=== PATIENT | female | born 1965 | race Caucasian/White ===

== ENCOUNTER 2017-08-13 18:40 | Emergency (ER) | payer BC, MEDICAID ==
[~2017-08-13] VITALS: Ht 170.2 cm; Wt 104.5 kg
[~2017-08-13 18:40] MED LIST: ASPI-664 PO; METO-429 PO; OLME1TAB25 PO
[2017-08-13 19:06] VITALS: Ht 170.2 cm; Wt 104.5 kg
[2017-08-14] MEDS ORDERED: ACETAMINOPHEN 325 MG TAB PO STA (01:53)
--- NOTE | 2017-08-14 02:36 | RADRPT ---
PROCEDURE: XR Chest. CLINICAL INDICATION: Shortness of breath. TECHNIQUE: AP Portable chest. COMPARISON: 03/14/2015 FINDINGS: The cardiomediastinal silhouette is normal. The lungs are clear. The osseous structures are unrema rkable. IMPRESSION: No acute findings. RPTAT: HIKT .Simon Franks MD, MD Date Time Electronically viewed and signed by .Simon Franks MD, on 08/14/2017 02:35 .T/
[2017-08-14 02:58] LABS: BASOPHIL # 0.1 10^3/ul (0.0-0.1); BASOPHILS % 0.3 % (0.0-2.0); HEMATOCRIT 44.8 % (37.0-47.0); HEMOGLOBIN 14.6 g/dl (12.0-16.0); LYMPHOCYTES # 1.5 10^3/ul (0.8-2.9); LYMPHOCYTES % 6.8 % (15.0-51.0); MEAN CORPUSCULAR HEMOGLOBIN 27.6 pg (29.0-33.0); MEAN CORPUSCULAR HGB CONC 32.6 g/dl (32.0-37.0); MEAN CORPUSCULAR VOLUME 84.7 fl (82.0-101.0); MEAN PLATELET VOLUME 10.5 fl (7.4-10.4); MONOCYTE # 0.9 10^3/ul (0.3-0.9); NEUTROPHIL # 19.8 10^3/ul (1.6-7.5); NEUTROPHILS % 88.4 % (39.0-77.0); PLATELET COUNT 328 10^3/UL (140-415); RED BLOOD COUNT 5.29 10^6/ul (4.20-5.40); RED CELL DISTRIBUTION WIDTH 13.5 % (11.5-14.5); WHITE BLOOD COUNT 22.4 10^3/ul (4.8-10.8)
[2017-08-14 03:02] LABS: ADD UMIC YES; UR ASCORBIC ACID NEGATIVE (NEGATIVE); UR BACTERIA FEW /HPF (NONE SEEN); UR BILIRUBIN (Dip) NEGATIVE (NEGATIVE); UR BLOOD (Dip) NEGATIVE (NEGATIVE); UR CLARITY SLIGHTLY CLOUDY (CLEAR); UR COLOR YELLOW (YELLOW); UR GLUCOSE (Dip) NEGATIVE (NEGATIVE); UR KETONES (Dip) TRACE mg/dL (NEGATIVE); UR LEUKOCYTE ESTERASE (Dip) NEGATIVE Leu/ul (NEGATIVE); UR NITRITE (Dip) NEGATIVE (NEGATIVE); UR RBC 1 /HPF (0-5); UR SPECIFIC GRAVITY (Dip) 1.015 (1.003-1.030); UR SQUAMOUS EPITHELIAL CELL FEW /HPF (FEW); UR TOTAL PROTEIN (Dip) 1+ mg/dl (NEGATIVE); UR UROBILINOGEN (Dip) NEGATIVE (NEGATIVE)
[2017-08-14 03:19] LABS: INR 1.25; PROTIME 15.8 Sec (12.2-14.2); PT RATIO 1.2
[2017-08-14 03:20] LABS: PARTIAL THROMBOPLASTIN TIME 30.3 Sec (25.0-35.0)
[2017-08-14 03:23] LABS: ALBUMIN 4.6 g/dl (3.3-4.9); ALBUMIN/GLOBULIN RATIO 1.24; BILIRUBIN,INDIRECT 0.3 mg/dl (0-1.1); BILIRUBIN,TOTAL 0.3 mg/dl (0.2-1.3); CALCIUM 9.6 mg/dl (8.4-10.2); CREATININE 2.65 mg/dl (0.44-1.00); POTASSIUM 3.1 mmol/L (3.5-5.1); TOTAL PROTEIN 8.3 g/dl (6.1-8.1)
[2017-08-14 03:34] LABS: TROPONIN-I 0.014 ng/ml (0.00-0.12)
[2017-08-14] MEDS ORDERED: AMLO-147 PO (03:43)
[2017-08-14] MEDS ORDERED: ATEN100T PO (03:43)
[2017-08-14] MEDS ORDERED: HYDR25TA6 PO (03:43)
[2017-08-14] MEDS ORDERED: KETOROLAC 15 MG INJ IV STA (05:28)
[2017-08-14] MEDS ORDERED: IBUP800T25 PO (05:29)
[2017-08-14] MEDS ORDERED: ACET325T33 PO (05:29)
[2017-08-14] MEDS ORDERED: PRED20TA PO (05:29)
[2017-08-14] MEDS ORDERED: ONDA4TAB14 PO (05:30)
--- NOTE | 2017-08-14 05:32 | ERD ---
ER Documentation Chief Complaint Date/Time DATE: 08/14/17 TIME: 05:30 Chief Complaint c/o weakness, dizziness, and nausea/vomiting since a.m. HPI This is a 51-year-old female comes in with fever cough runny nose weakness dizziness and nausea and vomiting since this morning. She denies any chills but has felt feverish. Vomiting is nonbilious and nonbloody. Patient was able to tolerate p.o. prior to arrival to the emergency department. Patient denies any focal neurological complaints. No sick contacts of the patient knows of. No other current issues. ROS All systems reviewed and are negative except as per history of present illness. Medications Home Meds Active Scripts Ondansetron (Ondansetron Odt) 4 Mg Tab.rapdis, 4 MG PO Q6H Y for NAUSEA AND/OR VOMITING, #10 TAB Prov:LUNA HERNANDEZ 08/14/17 Acetaminophen* (Tylenol*) 325 Mg Tablet, 2 TAB PO Q6 Y for PAIN AND OR ELEVATED TEMP, #20 TAB Prov:LUNA HERNANDEZ 08/14/17 Ibuprofen* (Motrin*) 800 Mg Tab, 800 MG PO Q6, #30 TAB Prov:LUNA HERNANDEZ 08/14/17 Prednisone* (Prednisone*) 20 Mg Tab, 40 MG PO DAILY for 4 Days, TAB Prov:LUNA HERNANDEZ 08/14/17 Olmesartan-Hydrochlorothiazide (Benicar HCT) 40-12.5 Mg Tablet, 1 TAB PO DAILY, #30 TAB 3 Refills Prov:BEKA LACKEY MD 03/15/15 Aspirin* (Aspirin* EC) 81 Mg Tabec, 81 MG PO DAILY, #30 TAB Prov:BEKA LACKEY MD 03/15/15 Reported Medications Amlodipine Besylate* (Amlodipine Besylate*) 10 Mg Tablet, 10 MG PO DAILY, #30 TAB 08/14/17 Hydrochlorothiazide* (Hydrochlorothiazide*) 25 Mg Tab, 25 MG PO QAM, #30 TAB 08/14/17 Atenolol* (Atenolol*) 100 Mg Tablet, 100 MG PO DAILY, #30 TAB 08/14/17 Discontinued Scripts Metoprolol Tartrate* (Lopressor*) 50 Mg Tab, 50 MG PO BID, #60 TAB Prov:BEKA LACKEY MD 03/15/15 Allergies Allergies: Coded Allergies: No Known Allergy (Unverified , 03/14/15) PMhx/Soc History of Surgery: Yes (HYSTERECTOMY ) Anesthesia Reaction: No Hx Neurological Disorder: No Hx Respiratory Disorders: No Hx Cardiac Disorders: Yes (HTN ) Hx Psychiatric Problems: No Hx Alcohol Use: Yes Hx Substance Use: No Hx Tobacco Use: No Smoking Status: Never smoker Physical Exam Vitals Vital Signs Date Time Temp Pulse Resp B/P Pulse Ox O2 Delivery O2 Flow Rate FiO2 08/14/17 02:43 101.8 83 18 105/60 100 Room Air 08/14/17 02:43 Nasal Cannula 08/13/17 19:06 101.8 72 18 98/57 98 Physical Exam Const: [] Head: Atraumatic Eyes: Normal Conjunctiva ENT: Normal External Ears, Nose and Mouth. Neck: Full range of motion..~ No meningismus. Resp: Clear to auscultation bilaterally Cardio: Regular rate and rhythm, no murmurs Abd: Soft, non tender, non distended. Normal bowel sounds Skin: No petechiae or rashes Back: No midline or flank tenderness Ext: No cyanosis, or edema Neur: Awake and alert Psych: Normal Mood and Affect Result Diagram: 08/14/1722808/14/17228 Results 24 hrs Laboratory Tests Test 08/14/17 02:29 08/14/17 02:34 08/14/17 04:01 White Blood Count 22.410^3/ul Red Blood Count 5.2910^6/ul Hemoglobin 14.6g/dl Hematocrit 44.8% Mean Corpuscular Volume 84.7fl Mean Corpuscular Hemoglobin 27.6pg Mean Corpuscular Hemoglobin Concent 32.6g/dl Red Cell Distribution Width 13.5% Platelet Count 35587^3/UL Mean Platelet Volume 10.5fl Neutrophils % 88.4% Lymphocytes % 6.8% Monocytes % 4.0% Eosinophils % 0.0% Basophils % 0.3% Nucleated Red Blood Cells % 0.0/100WBC Neutrophils # 19.810^3/ul Lymphocytes # 1.510^3/ul Monocytes # 0.910^3/ul Eosinophils # 0.010^3/ul Basophils # 0.110^3/ul Nucleated Red Blood Cells # 0.010^3/ul Prothrombin Time 15.8Sec Prothrombin Time Ratio 1.2 INR International Normalized Ratio 1.25 Activated Partial Thromboplast Time 30.3Sec Sodium Level 139mmol/L Potassium Level 3.1mmol/L Chloride Level 97mmol/L Carbon Dioxide Level 25mmol/L Anion Gap 20 Blood Urea Nitrogen 23mg/dl Creatinine 2.65mg/dl Glucose Level 114mg/dl Calcium Level 9.6mg/dl Total Bilirubin 0.3mg/dl Direct Bilirubin 0.00mg/dl Indirect Bilirubin 0.3mg/dl Aspartate Amino Transf (AST/SGOT) 31IU/L Alanine Aminotransferase (ALT/SGPT) 59IU/L Alkaline Phosphatase 90IU/L Troponin I 0.014ng/ml Total Protein 8.3g/dl Albumin 4.6g/dl Globulin 3.70g/dl Albumin/Globulin Ratio 1.24 Urine Color YELLOW Urine Clarity SLIGHTLY CLOUDY Urine pH 6.0 Urine Specific Amalia 1.015 Urine Ketones TRACEmg/dL Urine Nitrite NEGATIVEmg/dL Urine Bilirubin NEGATIVEmg/dL Urine Urobilinogen NEGATIVEmg/dL Urine Leukocyte Esterase NEGATIVELeu/ul Urine Microscopic RBC 1/HPF Urine Microscopic WBC 2/HPF Urine Squamous Epithelial Cells FEW/HPF Urine Bacteria FEW/HPF Urine Hemoglobin NEGATIVEmg/dL Urine Glucose NEGATIVEmg/dL Urine Total Protein 1+mg/dl Lactic Acid Level 1.1mmol/L Current Medications Medications (Trade) Dose Ordered Sig/Rosie Route PRN Reason Start Time Stop Time Status Last Admin Dose Admin Acetaminophen (Tylenol Tab) 650 mg ONCE STAT PO 08/14/17 01:53 08/14/17 01:54 DC 08/14/17 02:42 Ketorolac Tromethamine (Toradol) 15 mg ONCE STAT IV 08/14/17 05:28 08/14/17 05:29 DC Procedures/MDM Medical decision-makin-year-old female who comes in essentially with fever of unknown source. This seems viral in nature given the patient's symptomatology including runny nose and cough, however she will be given strict aftercare instructions and will be discharged on prednisone Motrin and Tylenol. Patient feels much better post hydration, Tylenol, Toradol here and wishes to be discharged home. Departure Diagnosis: Primary Impression: Fever Fever type: unspecified Qualified Code: R50.9 - Fever, unspecified fever cause Condition: Stable Patient Instructions: Viral Syndrome (Adult) LUNA HERNANDEZ Aug 14, 2017 05:31
[2017-08-14 06:45] VITALS: BP 95/62; PULSE 80; RESP 18; TEMP 99.1
== END 2017-08-14 06:48 | disposition home or self-care (01) ==
LOC: E/R 18:40
DX: R50.9 Fever, unspecified (principal); I10 Essential (primary) hypertension; R07.9 Chest pain, unspecified; Z79.82 Long term (current) use of aspirin
CPT/HCPCS: 36415; 71010; 80053; 81001; 83605; 84484; 85025; 85610; 85730; 87040; 87086; 87400; 96374; J1885; Z7502; Z7610